=== PATIENT | male | born 2000 | race Caucasian/White ===

== ENCOUNTER 2023-11-26 17:52 | Emergency (ER) | payer OTHER, SELFPAY ==
--- NOTE | ~2023-11-26 | CT_ITS ---
EXAMINATION: CT brain wo con DATE: 11/26/2023 19:12 INDICATION: Seizure TECHNIQUE: Computed tomography (CT) of the head was performed without intravenous contrast. Sagittal and coronal reconstructions were performed. The mA was adjusted according to patient size. Iterative reconstruction technique was employed. The dose-length product was 605.33 mGy-cm. COMPARISON: None FINDINGS: No acute intracranial hemorrhage, acute infarction or abnormal extra axial fluid collection. Ventricl es are normal and symmetric. No mass/mass effect. The orbits, paranasal sinuses and mastoid air cells are normal. IMPRESSION: 1. Normal head CT. Reviewed, dictated and finalized at location A. IMPRESSION: 1. Normal head CT.
[2023-11-26 17:59] VITALS: BP 138/63; PULSE 93; RESP 18; TEMP 36.8; O2SAT 100
--- NOTE | 2023-11-26 18:09 | ECG_ITS ---
Test Date: 2023-11-26 18:17:06 Measurements Intervals [place] Rate: 59 P: 12 VT: 139 QRS: 28 QRSD: 107 T: 31 QT: 394 QTc: 390 Interpretive Statements SINUS BRADYCARDIA ST ELEVATION IN DIFFUSE LEADS, PROBABLY EARLY REPOLARIZATION BORDERLINE ECG No previous ECG available for comparison Electronically Signed On 11-27-2023 08:04:53 CDT by Ceferino Marshall D.O.
[2023-11-26 18:10] VITALS: PULSE 78
--- NOTE | 2023-11-26 18:11 | ED.GENADULT ---
HPI - General Adult General Chief complaint: Unspecified Stated complaint: I think I had a seizure Time Seen by Provider: 11/26/23 17:58 History of Present Illness HPI narrative: 24-year-old male presents emergency department for evaluation after having a syncopal episode while playing video games. Patient states that he felt a rushing in his ears while playing the video game and states he leaned back and his friend states that his eyes rolled back in his head showed for approximately 10 seconds. After that time patient woke up and was alert and oriented. Patient did not bite his tongue, patient had no loss of bowel or bladder control. Patient denies any prior history of seizure. Related Data Allergies Allergy/AdvReac Type Severity Reaction Status Date / Time No Known Allergies Allergy Verified 11/26/23 18:03 Review of Systems Review of Systems: All systems reviewed & are unremarkable except as noted in HPI and below Exam Narrative: APPEARANCE: Well appearing, no pain, no distress, well-nourished. HEAD: normocephalic, atraumatic. EYES: PERRLA/EOMI, conjunctivae clear. NOSE: Normal no drainage EARS:TMS clear with good light reflex. THROAT: Pharynx clear, no exudate. NECK: Supple. No adenopathy, no masses. RESPIRATORY: Airway patent, respirations nonlabored. Clear to auscultation bilaterally, no rales, rhonchi, wheezing. CARDIOVASCULAR: Regular rate and rhythm without murmurs rubs or gallops. ABDOMINAL: Soft, nontender, nondistended, normal bowel sounds MUSCULOSKELETAL: Moves all extremities. Strength/ROM intact, No edema, No calf tenderness. NEURO: Alert. Cranial nerves II through XII intact. Grossly intact SKIN: Warm, dry. Normal Color Course Course Emergency Course: Patient felt improved with treatment was discharged home with seizure precautions Vital Signs Vital signs: Vital Signs Temperature 98.2 F 11/26/23 17:59 Pulse Rate 93 11/26/23 17:59 Respiratory Rate 18 11/26/23 17:59 Blood Pressure 138/63 11/26/23 17:59 Pulse Oximetry 100 11/26/23 17:59 Oxygen Delivery Room Air 11/26/23 17:59 Temperature 98.2 F 11/26/23 17:59 Pulse Rate 72 11/26/23 19:00 Respiratory Rate 13 11/26/23 19:00 Blood Pressure 116/83 11/26/23 19:00 Pulse Oximetry 98 11/26/23 19:00 Oxygen Delivery Room Air 11/26/23 17:59 Medical Decision Making [facility] Narrative Medical decision making narrative: 23-year-old male presents emergency department for evaluation for possible seizure-like activity. Patient is afebrile with no leukocytosis and stable hemoglobin of 14.6. Patient has no abnormalities on his CMP. Mag was normal lactic acid is normal head CT was normal. Patient has no complaints at this time. Differential Diagnosis Differential Diagnosis: Vasovagal, syncope, cardiac arrhythmia, seizure Vital Signs Vital Signs: Vital Signs Temperature 98.2 F 11/26/23 17:59 Pulse Rate 93 11/26/23 17:59 Respiratory Rate 18 11/26/23 17:59 Blood Pressure 138/63 11/26/23 17:59 Pulse Oximetry 100 11/26/23 17:59 Oxygen Delivery Room Air 11/26/23 17:59 Temperature 98.2 F 11/26/23 17:59 Pulse Rate 72 11/26/23 19:00 Respiratory Rate 13 11/26/23 19:00 Blood Pressure 116/83 11/26/23 19:00 Pulse Oximetry 98 11/26/23 19:00 Oxygen Delivery Room Air 11/26/23 17:59 Lab Data Lab results reviewed: Yes I reviewed the patient's lab results. 11/26/23 18:56 11/26/23 18:56 Labs: Lab Results 11/26/23 11/26/23 Range/Units 18:24 18:56 WBC 8.1 (4.5-10.0) K/mm3 RBC 4.74 (4.6-6.20) M/mm3 Hgb 14.6 (14.0-18.0) g/dL Hct 42.0 (42.0-52.0) % MCV 88.6 (80-100) fl MCH 30.8 (26-34) pg MCHC 34.8 (32-36) g/dl RDW 12.3 (11.5-14.5) % Plt Count 306 (150-375) k/mm3 MPV 9.2 (7.4-10.4) fl Immature Gran % (Auto) 0.2 (0-0.5) % Neut % (Auto) 67.9 (45.5-73.1) % Lymph % (Auto) 18.3 (18.3-44.2) %
[2023-11-26 18:30] LABS: Glucose Point of Care 106 mg/dl (65-105)
[2023-11-26 19:00] VITALS: BP 116/83; PULSE 72; RESP 13; O2SAT 98
[2023-11-26 19:03] LABS: Basophils Percent Auto 0.1 % (0.2-1.2); Eosinophils Absolute Auto 0.3 K/mm3 (0-0.3); Eosinophils Percent Auto 3.2 % (0-4.4); Hemoglobin 14.6 g/dL (14.0-18.0); Immature Granulocyte Absolute 0.02 K/mm3 (0.00-0.031); Immature Granulocyte Percent A 0.2 % (0-0.5); Lymphocytes Absolute Auto 1.47 K/mm3 (0.9-3.2); Lymphocytes Percent Auto 18.3 % (18.3-44.2); Mean Corpuscular HGB Conc 34.8 g/dl (32-36); Mean Corpuscular Hemoglobin 30.8 pg (26-34); Mean Corpuscular Volume 88.6 fl (80-100); Mean Platelet Volume 9.2 fl (7.4-10.4); Monocytes Absolute Auto 0.8 K/mm3 (0.1-0.6); Monocytes Percent Auto 10.3 % (2.6-8.5); Neutrophils Absolute Auto 5.5 K/mm3 (1.3-6.7); Neutrophils Percent Auto 67.9 % (45.5-73.1); Platelet Count Result 306 k/mm3 (150-375); Red Blood Count 4.74 M/mm3 (4.6-6.20); Red Cell Distribution Width 12.3 % (11.5-14.5); White Blood Count 8.1 K/mm3 (4.5-10.0)
[2023-11-26 19:15] LABS: Lactic Acid Reflex 1.5 mmol/L (0.7-2.0)
[2023-11-26 19:16] LABS: Alanine Aminotransferase 20 U/L (6-50); Albumin Level 4.7 g/dL (3.5-5.1); Alkaline Phosphatase 49 U/L (38-126); Anion Gap 10 mmol/L (4-12); Aspartate Amino Transferase 31 U/L (17-59); Bilirubin,Total 0.8 mg/dL (0.2-1.3); Blood Urea Nitrogen 16 mg/dL (9-20); Carbon Dioxide 27 mmol/L (22-30); Chloride 99 mmol/L (98-107); Estimated CRCL calculation 105 ml/min; Estimated Glomerular Filt Rate > 60; Glucose 84 mg/dL (65-110); Magnesium 2.1 mg/dL (1.6-2.3); Potassium 4.2 mmol/L (3.4-5.0); Sodium 136 mmol/L (137-145)
== END 2023-11-26 19:53 | disposition home or self-care (01) ==
PROVIDERS: Emergency Provider Emergency Medicine
DX: R56.9 Unspecified convulsions (principal)
CPT/HCPCS: 36415; 70450; 80053; 82948; 83605; 83735; 84443; 85025; 93005; 99284